=== PATIENT | male | born 1955 | race Caucasian/White ===

== ENCOUNTER 2017-07-30 08:39 | Inpatient (IN) | payer MEDICARE, BC ==
[2017-07-30] MEDS ORDERED: ASPIRIN 81 MG PO STA (08:52)
[2017-07-30] MEDS ORDERED: NITROGLYCERIN SL TABS 0.4 MG TAB SUBLINGUAL STA ×3 (08:52)
--- NOTE | 2017-07-30 08:56 | ED ---
General Adult HPI - General Chief complaint: Chest Pain Stated complaint: CHEST PAIN Time Seen by Provider: 07/30/17 08:49 Source: patient, RN notes reviewed Mode of arrival: ambulatory Limitations: no limitations - History of Present Illness Initial comments: Patient is a pleasant 62-year-old male presenting to the emergency department complaining of chest discomfort. Onset of symptoms was last night. Patient has discomfort described as "pain" no radiation. Patient has had mild sweating. No dyspnea. No nausea. No history of similar symptoms previously. Discomfort is severe at this time. Discomfort has been waxing and waning. - Related Data Home Medications Medication Instructions Recorded Confirmed Amoxic-Pot Clav 875-125Mg 1 tab PO Q12HR 07/30/17 07/30/17 [Augmentin 875-125] Fluticasone Nasal [place] [Flonase 1 spray EA NOSTRIL DAILY 07/30/17 07/30/17 Nasal [place]] Methocarbamol [Robaxin] 500 mg PO DAILY 07/30/17 07/30/17 Metoprolol Succinate [Toprol XL] 25 mg PO DAILY 07/30/17 07/30/17 oxyCODONE ER [OxyCONTIN 20MG E.R] 20 mg PO DAILY 07/30/17 07/30/17 Allergies Allergy/AdvReac Type Severity Reaction Status Date / Time No Known Allergies Allergy Verified 07/30/17 08:49 Review of Systems ROS Statement: Those systems with pertinent positive or pertinent negative responses have been documented in the HPI. ROS Other: All systems not noted in ROS Statement are negative. Constitutional: Denies: fever Eyes: Denies: eye pain ENT: Denies: ear pain Respiratory: Denies: cough, dyspnea Cardiovascular: Reports: chest pain Endocrine: Denies: fatigue Gastrointestinal: Denies: abdominal pain Genitourinary: Denies: dysuria Musculoskeletal: Denies: back pain Skin: Denies: rash Neurological: Denies: weakness Past Medical History Past Medical History: Hypertension History of Any Multi-Drug Resistant Organisms: None Reported Past Surgical History: Tonsillectomy Additional Past Surgical History / Comment(s): back sx, wisdom Past Psychological History: No Psychological Hx Reported Smoking Status: Current every day smoker Past Alcohol Use History: None Reported Past Drug Use History: None Reported General Exam Limitations: no limitations General appearance: alert, in distress (Patient does appear uncomfortable.) Head exam: Present: atraumatic Eye exam: Present: normal appearance, PERRL ENT exam: Present: normal oropharynx Neck exam: Present: normal inspection Respiratory exam: Present: normal lung sounds bilaterally. Absent: chest wall tenderness Cardiovascular Exam: Present: regular rate, normal rhythm Expanded Peripheral pulses: 2+: Radial (R), Radial (L), Posterior Tibialis (R), Posterior Tibialis (L) GI/Abdominal exam: Present: soft. Absent: distended, tenderness Extremities exam: Present: normal inspection. Absent: pedal edema, calf tenderness Neurological exam: Present: alert Psychiatric exam: Present: anxious Skin exam: Present: normal color Course Vital Signs 07/30/17 08:41 Temperature 96.8 F L Pulse Rate 75 Respiratory 22 Rate Blood Pressure 109/72 O2 Sat by Pulse 100 Oximetry - Reevaluation(s) Reevaluation #1: 07/30/17 08:53 Practitioner Nadeen jay did call back from cardiology. laborer construction or leak gang did call back and patient will go to Tele[facility] 2. 07/30/17 08:55 Dr. Beaver is presently evaluating the patient. Right-sided EKG without elevation in lead V4. Normal sinus rhythm 75. MO 190. QRS 98. QT 390. QTC 435. Normal axis. Low QRS voltage. Inferior ST elevation. 07/30/17 09:04 Patient has gone to the Telecommunications Administrator. 07/30/17 09:05 Dr. Huggins has already been paged for admission. 07/30/17 09:07 Case was discussed with Dr. Huggins who will admit for hospital call. EKG Findings - EKG Comments: EKG Findings:: Normal sinus rhythm 74. MO 190. QRS 96. QT 396. QTc 439. Normal axis. Borderline inferior Q waves. There is ST elevation inferior. There is also some ST elevation laterally. There is some ST depression in leads aVL and lead V2 and V3. No old EKG available. Medical Decision Making - Lab Data Result diagrams: 07/30/17 08:50 Lab Results 07/30/17 Range/Units 08:50 WBC 10.1 (3.8-10.6) k/uL RBC 4.97 (4.30-5.90) m/uL Hgb 14.6 (13.0-17.5) gm/dL Hct 42.4 (39.0-53.0) % MCV 85.4 (80.0-100.0) fL MCH 29.4 (25.0-35.0) pg MCHC 34.4 (31.0-37.0) g/dL RDW 13.8 (11.5-15.5) % Plt Count 257 (150-450) k/uL Neutrophils % 72 % Lymphocytes % 20 % Monocytes % 4 % Eosinophils % 2 % Basophils % 1 % Neutrophils # 7.3 (1.3-7.7) k/uL Lymphocytes # 2.1 (1.0-4.8) k/uL Monocytes # 0.4 (0-1.0) k/uL Eosinophils # 0.2 (0-0.7) k/uL Basophils # 0.1 (0-0.2) k/uL - Radiology Data Interpreted by me: Chest x-ray shows no acute abnormality. No mediastinal widening. Disposition Clinical Impression: ST elevation myocardial infarction (STEMI) Disposition: ADMITTED IP TO THIS [facility] Condition: Critical Referrals: Nonstaff,Physician [Primary Care Provider] - 1-2 days Decision Time: 09:08
[2017-07-30] MEDS ORDERED: HEPARIN SODIUM,PORCINE 5,000 UNIT/ML 1 ML VIAL IV PRN (08:58)
[2017-07-30] MEDS ORDERED: ATORVASTATIN 80 MG TAB PO STA (08:58)
[2017-07-30] MEDS ORDERED: HEPARIN SODIUM,PORCINE 5,000 UNIT/ML 1 ML VIAL IV STA (08:58)
[2017-07-30] MEDS ORDERED: HEPARIN SODIUM,PORCINE 5,000 UNIT/ML 1 ML VIAL IV ONE (08:58)
[2017-07-30 09:00] LABS: Basophils # (A) 0.1 k/uL (0-0.2); Basophils % (A) 1 %; Eosinophils # (A) 0.2 k/uL (0-0.7); Eosinophils % (A) 2 %; HCT 42.4 % (39.0-53.0); HGB 14.6 gm/dL (13.0-17.5); Lymphocytes # (A) 2.1 k/uL (1.0-4.8); Lymphocytes % (A) 20 %; MCH 29.4 pg (25.0-35.0); MCHC 34.4 g/dL (31.0-37.0); MCV 85.4 fL (80.0-100.0); Mean Platelet Volume 7.7; Monocytes # (A) 0.4 k/uL (0-1.0); Monocytes % (A) 4 %; Neutrophils # (A) 7.3 k/uL (1.3-7.7); Neutrophils % (A) 72 %; Platelet Count 257 k/uL (150-450); RBC 4.97 m/uL (4.30-5.90); RDW 13.8 % (11.5-15.5); WBC 10.1 k/uL (3.8-10.6)
[2017-07-30] MEDS ORDERED: HEPARIN SOD,PORK IN 0.45% NACL 25,000 UNIT in 0.45% NACL 1 500ML.BAG IV SCH (09:00)
[2017-07-30 09:09] LABS: ALT 32 U/L (21-72); AST 31 U/L (17-59); Albumin 3.9 g/dL (3.5-5.0); Alkaline Phosphatase 74 U/L (38-126); Anion Gap 11 mmol/L; Blood Urea Nitrogen 19 mg/dL (9-20); Carbon Dioxide 21 mmol/L (22-30); Chloride 105 mmol/L (98-107); Glucose 195 mg/dL (74-99); Potassium 4.2 mmol/L (3.5-5.1); Sodium 137 mmol/L (137-145); Total Bilirubin 0.3 mg/dL (0.2-1.3); Total Protein 6.8 g/dL (6.3-8.2)
[2017-07-30 09:12] LABS: Partial Thromboplastin Time 24.2 sec (22.0-30.0); Prothrombin Time 9.5 sec (9.0-12.0)
--- NOTE | 2017-07-30 09:18 | XR ---
EXAMINATION TYPE: XR chest 1V portable DATE OF EXAM: 07/30/2017 HISTORY: Shortness of breath. COMPARISON: 01/14/2013 TECHNIQUE: Single view of the chest is submitted. FINDINGS: Demonstrated are scattered senescent parenchymal change. There is no evidence for focal infiltrate. The heart is stable. Hilar and mediastinal structures are within normal limits. Degenerative changes are seen of the dorsal spine. IMPRESSION: 1. Chronic changes without evidence for acute pulmonary disease.
[2017-07-30] MEDS ORDERED: fentaNYL (PF) 50 MCG/ML 2 ML AMP IV ONE (09:19)
[2017-07-30] MEDS ORDERED: LIDOCAINE 2% INJ 20 MG/ML SQ ONE (09:19)
[2017-07-30] MEDS ORDERED: BIVALIRUDIN BOLUS 250 MG/50 ML IV ONE (09:26)
[2017-07-30 09:28] LABS: Magnesium 1.8 mg/dL (1.6-2.3)
[2017-07-30] MEDS ORDERED: BIVALIRUDIN 250 MG in SODIUM CHLORIDE 0.9% 50 ML IV ONE ×2 (09:28→10:02)
[2017-07-30] MEDS ORDERED: PRASUGREL 10 MG TAB PO ONE (09:32)
[2017-07-30] MEDS ORDERED: SODIUM CHLORIDE 0.9% 1,000 ML IV ONE (09:37)
--- NOTE | 2017-07-30 09:37 | CONS ---
CONSULTATION Mr. Thompson is a 62-year-old male with a history of hypertension, history of chronic tobacco use, who presented to the emergency room with symptoms of chest discomfort that started last night then got better, worse at the time of presentation. In the emergency room, his EKG was consistent with an inferior wall myocardial infarction. The patient denies any prior cardiac history and according to him, he is quite active physically without any limitation. He has no history of recent dizziness or palpitation. He has some palpitation. He had a prior history of arrhythmia over 10 years ago that has been stable. He has no PND, orthopnea, or peripheral edema. His coronary risk factors are remarkable for hypertension and smoking. He is nondiabetic. No documented hyperlipidemia. SOCIAL HISTORY: He drinks occasional alcohol and smokes. REVIEW OF SYSTEMS: RESPIRATORY SYSTEM: No recent wheezing or cough. No history of documented obstructive lung disease. GI SYSTEM: No recent GI bleeding. No peptic ulcer disease. SYSTEM: No dysuria or hematuria. NERVOUS SYSTEM: No stroke or seizure. PHYSICAL EXAMINATION: A 62-year-old male, alert, oriented, in mild discomfort. Heart rate in the 70s. Blood pressure 130/70. HEAD: Normocephalic. EYES: Sclerae anicteric. NECK: Good carotid upstroke. No bruit. No jugular venous distention. LUNGS: Clear to auscultation. HEART: Regular rate and rhythm S1, S2. No S3. No rub. ABDOMEN: Soft, obese, nontender. Positive bowel sounds. No organomegaly. EXTREMITIES: No edema. Intact distal pulses. EKG revealed sinus mechanism with ST-segment elevation in the inferior leads with ST- segment depression in the anterior precordial leads consistent with an acute inferior myocardial infarction with possible posterior extension. IMPRESSION: 1. Acute inferior myocardial infarction. 2. Chronic tobacco use. 3. Hypertension. RECOMMENDATION: I recommend proceeding with emergent coronary angiography to assess his status and guide his treatment. The rationale behind the procedure as well as the risks and complications were discussed with the patient who is in full understanding and agreement. Thank you for this consult. We will follow with you. ION / RYAN: [id number] /
[2017-07-30 09:42] LABS: Troponin I 0.535 ng/mL (0.000-0.034)
[2017-07-30] MEDS ORDERED: HYDROmorphone 2 MG/ML 1 ML SYRINGE IV ONE (09:45)
[2017-07-30 10:07] LABS: Creatine Kinase MB 9.2 ng/mL (0.0-2.4)
[2017-07-30] MEDS ORDERED: IOHEXOL 350 MG/ML 125ML BOTTLE INJ ONE (10:21)
[2017-07-30] MEDS ORDERED: NITROGLYCERIN SL TABS 0.4 MG TAB SUBLINGUAL PRN (10:31)
[2017-07-30] MEDS ORDERED: RX INFO: IV CONTRAST WAS GIVEN 1 EACH MISC MISCELLANE PRN (10:31)
[2017-07-30] MEDS ORDERED: ZOLPIDEM 5 MG TAB PO PRN (10:31)
[2017-07-30] MEDS ORDERED: MAG HYDROX/AL HYDROX/SIMETH 30 ML CUP PO PRN (10:31)
[2017-07-30] MEDS ORDERED: ATROPINE SULFATE 0.1 MG/ML 10ML SYRINGE IV PRN (10:31)
[2017-07-30] MEDS ORDERED: SODIUM CHLORIDE 0.9% 1,000 ML IV SCH (10:45)
[2017-07-30 10:56] LABS: Glucose,Whole Blood 124 mg/dL (75-99)
--- NOTE | 2017-07-30 11:07 | CONS ---
CONSULTATION Mr. Thompson is a 62-year-old male with history of chronic tobacco use, history of hypertension, who presented to the emergency room with an acute inferior myocardial infarction. In view of that, recommendation made regarding cardiac catheterization, the procedures risks and complication were discussed with the patient, who is in full understanding and agreement. PROCEDURE: Patient was brought to [facility] in a fasting semi-sedated state after receiving fentanyl and Benadryl and achieving moderate conscious sedated state. Using Xylocaine anesthesia and Seldinger technique, a 6-Lao sheath was introduced in the right radial artery. Selective right and left angiography performed using 6-Lao 3.5 Bend FR guiding catheter and a 6-Lao 3.5 FL guiding catheter. Images of the coronary arteries were obtained following angioplasty and stenting of the left circumflex was performed. Following that, the 5-Lao tight pigtail catheter was introduced into the left ventricle and pressures were calculated. Following that, catheter and sheath were removed. Hemostasis was obtained with deployment of a TR band. There was no immediate complication. Patient is returned to his room in stable condition. FINDINGS: 1. LEFT MAIN: This is a large-sized vessel bifurcating into left circumflex, left anterior descending artery. Left main coronary artery is without any obstructive coronary disease. 2. LEFT ANTERIOR DESCENDING ARTERY: This is a large-sized vessel reaching toward the apex with a wraparound apex segment giving rise to a moderate diagonal branch. Left anterior descending artery has mild intimal disease, 10% to 20% without any evidence of high-grade stenosis. 3. LEFT CIRCUMFLEX: This vessel is totally occluded proximally with no significant antegrade flow at the takeoff of the first obtuse marginal branch. 4. RIGHT CORONARY ARTERY: This is a large dominant vessel bifurcating distally into PDA and posterolateral segment and branches. The right coronary artery has mild intimal disease in mid segment without any evidence of high-grade stenosis. 5. LEFT VENTRICULOGRAM: Left ventriculogram is not performed. 6. HEMODYNAMICS: There was no gradient across the aortic valve. The left ventricular end-diastolic pressure was 14 to 16 mmHg. CONCLUSION: 1. Acutely occluded proximal left circumflex at the takeoff of the acute marginal branch. 2. Mild disease in the LAD and the right coronary artery. RECOMMENDATION: In view of finding anatomy, recommend proceeding with the angioplasty and stenting of the left circumflex. The procedures, risks and complication were discussed with the patient who was in full understanding and agreement. MMODL / IJN: [id number] /
--- NOTE | 2017-07-30 11:13 | PTCA ---
PERCUTANEOUSTRANS CORORONARY ANGIOGRAPHY Mr. Thompson is a 62-year-old male with known history of hypertension, chronic tobacco use, who presented with an acute myocardial infarction, underwent cardiac catheterization, was found to have totally occluded proximal left circumflex at the takeoff of the first obtuse marginal branch. In view of that, recommendation was made regarding angioplasty and stenting. The procedure as well as the risks and complications were discussed with the patient who is in full understanding and agreement. PROCEDURE: Using a 6-Cymraes 3.5 FL guiding catheter and after cannulating the left main, a 0.014 balanced medium weight weight J-wire was advanced across the lesion. A 2.5 x 8 mm Trek balloon was advanced and one inflation was done. There was inability to maintain the wire in the distal vessel because of the tortuosity in the vessel and backup from the guiding catheter was not optimal. At that point, guidewire, the balloon and the guiding catheter were removed and a 6-Cymraes FL4 guiding catheter was introduced in the system. After cannulating the left, the vessel was rewired and attempts to advance a 2.5 x 12 mm Trek balloon were unsuccessful in advancing the balloon. Attempt to advance a GuideLiner was unsuccessful as well. At that point, the wire was removed and a 0.014 whisper J-wire was advanced, positioned distally. Then another whisper J-wire was advanced in the position next the first one in a jonatan fashion. Following that, the 2.5 x 12 mm Trek balloon was advanced and 2 inflation maximum of 8 atmospheres were done. Following that, the balloon was removed and a 3.0 x 18 mm Xience Alpine stent was deployed, postdilated at 14 atmospheres. After the last inflation, after appropriate wait, the balloon and the guidewire were withdrawn back in the guiding catheter. Images were obtained and repeated. Those images reveal stable successful stenting. At that point, the guiding catheter, the balloon and the guidewire were removed and a 5-Cymraes tight pigtail catheter introduced into the left ventricle and pressures were calculated. Following that, catheter and sheath were removed. Hemostasis was obtained with deployment of a TR band. There was no immediate complication. Patient returned to his room in stable condition. Of note, the patient received Angiomax per protocol as well as oral loading dose of Effient. He had resolution of chest discomfort as well as improvement of his EKG changes. RESULTS: Successful stenting of the first obtuse marginal branch with reduction of stenosis from 100% to 0%. RECOMMENDATION: Patient will be continued on aspirin, Effient, beta blockers and statin. The importance of dual antiplatelet treatment were discussed with the patient who is in full understanding and agreement. Duration of procedure: 61 minutes. MMODL / IJN: [id number] /
[2017-07-30] MEDS: LISINOPRIL 5 MG TAB PO SCH (15:42)
--- NOTE | 2017-07-30 17:19 | HP ---
HISTORY AND PHYSICAL CHIEF COMPLAINT: This is a 62-year-old white male, status post PTCA of the right circumflex and obtuse artery. HISTORY OF PRESENT ILLNESS: This 62-year-old white male presented with a positive myocardial infarction to the emergency room with intermittent pain and sweating. He was found to have a positive heart attack, a STEMI, and he was sent to the general labor forklift operator where a PTCA was performed, stenting of the left circumflex as mentioned above. HOME MEDICATIONS: Home medications include: 1. Augmentin. 2. Fluticasone. 3. Robaxin. 4. Toprol-XL. 5. OxyContin. SOCIAL HISTORY: He is a smoker. No alcohol. No drugs. PAST MEDICAL HISTORY: Hypertension. REVIEW OF SYSTEMS: Fourteen-point review of systems negative except as mentioned in HPI. ALLERGIES: NO KNOWN DRUG ALLERGIES. PHYSICAL EXAM: Vital signs stable. Afebrile. Temperature 96.8, pulse 77, respirations 18 to 22 109/72. CARDIOVASCULAR: S1, S2. OPHTHALMOLOGIC: Pupils equal, round and reactive to light and accommodation. NEUROLOGIC: Alert and oriented x3. PSYCH: Fair mood and affect. : No suprapubic tenderness. HEMATOLOGIC: Negative Homans. GI: Soft. ASSESSMENT: 1. Sepsis, status post PTCA. 2. Nicotine addiction. 3. Dyslipidemia. 4. Status post ST-elevation myocardial infarction. 5. Hyperglycemia. Will do a hemoglobin A1c. Will do a lipid panel. Follow up in next 24 to 48 hours for possible cardiac monitoring here in the ICU, at which time possibly he will be sent to telemetry, maybe go home in 2 days. MMODL / IJN: [id number] /
[2017-07-30] MEDS: METHOCARBAMOL 500 MG TAB PO SCH (17:28)
[2017-07-30] MEDS: oxyCODONE ER 20 MG TAB.ER.12H PO SCH (17:29)
[2017-07-30] MEDS ORDERED: ACETAMINOPHEN TAB 325 MG TAB PO PRN (17:30)
[2017-07-30 18:36] LABS: Amphetamine Screen,Urine Not Detected (NotDetected); Barbiturate Screen,Urine Not Detected (NotDetected); Benzodiazepines Screen,Urine Detected (NotDetected); Cocaine Screen,Urine Not Detected (NotDetected); Methadone Screen, Urine Not Detected (NotDetected); Opiate Screen,Urine Not Detected (NotDetected); Phencyclidine Screen,Urine Not Detected (NotDetected); Tricyclic Antidepressant,Urine Not Detected (NotDetected); Urn Cannabinoid Scrn Detected (NotDetected)
[2017-07-30 18:37] LABS: Oxycodone Screen, Urine Detected (NotDetected)
[2017-07-30] MEDS: METOPROLOL TARTRATE 25 MG TAB PO SCH (20:47)
[2017-07-30] MEDS: AMOXIC-POT CLAV 875-125MG 1 EACH TAB PO SCH (20:47)
[2017-07-30 21:04] LABS: Hemoglobin A1C 5.3 % (4.0-6.0)
[2017-07-31 05:41] LABS: Anion Gap 8 mmol/L; Blood Urea Nitrogen 16 mg/dL (9-20); Calcium 9.7 mg/dL (8.4-10.2); Carbon Dioxide 26 mmol/L (22-30); Chloride 106 mmol/L (98-107); Cholesterol 150 mg/dL (<200); Glucose 118 mg/dL (74-99); HDL Cholesterol 31 mg/dL (40-60); LDL Cholesterol,Calculated 90 mg/dL (0-99); Potassium 4.5 mmol/L (3.5-5.1); Sodium 140 mmol/L (137-145); Triglycerides 143 mg/dL (<150)
[2017-07-31] MEDS: ASPIRIN 81 MG PO SCH (08:12)
[2017-07-31] MEDS: METOPROLOL TARTRATE 25 MG TAB PO SCH ×2 (08:12→21:04)
[2017-07-31] MEDS: LISINOPRIL 5 MG TAB PO SCH (08:12)
[2017-07-31] MEDS: AMOXIC-POT CLAV 875-125MG 1 EACH TAB PO SCH ×2 (08:12→21:04)
[2017-07-31] MEDS: oxyCODONE ER 20 MG TAB.ER.12H PO SCH (08:12)
[2017-07-31] MEDS: PRASUGREL 10 MG TAB PO SCH (08:12)
[2017-07-31] MEDS: METHOCARBAMOL 500 MG TAB PO SCH (08:18)
[2017-07-31] MEDS: SPIRONOLACTONE 25 MG TAB PO SCH (08:26)
--- NOTE | 2017-07-31 08:38 | PN ---
PROGRESS NOTE Mr. Thompson is a 62-year-old male who presents with an acute myocardial infarction was found to have a totally occluded proximal circumflex and obtuse marginal branch 1, underwent stenting of that vessel. He is doing well this morning. He has no symptoms of chest pain. His breathing has been stable. He denies any dizziness or palpitation. Denies any nausea. On the monitor, continued to be in sinus mechanism. He continued on aspirin once a day, Lipitor 80 mg daily, lisinopril 5 mg daily, metoprolol tartrate 25 mg twice a day. PHYSICAL EXAMINATION: Blood pressure 127/70 with a heart rate in the 80s. LUNGS: Clear. HEART: Regular rate and rhythm S1, S2. No S3. No rub. ABDOMEN: Soft, nontender. EXTREMITIES: No edema. Right radial pulse is intact. LAB DATA: Lab data revealed troponin up to 170. BUN, creatinine of 18, 116, cholesterol of 150 with an LDL of 90. EKGs consistent with inferoposterior myocardial infarction. IMPRESSION: 1. Status post acute ST-segment elevation myocardial infarction with stenting of the left circumflex. 2. Hypertension. 3. History of tobacco use. RECOMMENDATION: From the cardiac standpoint, I will add Aldactone to his regimen. I will review the results of his echocardiogram. He should be able to be transferred to telemetry floor today and increase his level of activity and depending on his progress, further recommendations will be made. ION / RYAN: [id number] /
[2017-07-31 10:21] VITALS: BMI 34.6
[2017-07-31] MEDS: ATORVASTATIN 80 MG TAB PO SCH (21:04)
--- NOTE | 2017-07-31 21:17 | PN ---
PROGRESS NOTE SUBJECTIVE: This is a 62-year-old white male, status post PTCA, having no chest pain or shortness of breath. No lightheadedness, dizziness, syncope. CARDIOVASCULAR: S1, S2. LUNGS: Clear. GI: Soft. HEMATOLOGIC: Negative Homans. VITAL SIGNS: Stable. Afebrile. He has a totally occluded proximal circumflex obtuse marginal branch, underwent stenting of the vessel. Remains on lisinopril 5 mg a day, Lipitor 80 mg a day, aspirin once a day, metoprolol 25 b.i.d. ASSESSMENT: 1. Status post acute ST-elevated myocardial infarction, left circumflex. 2. Hypertension. echocardiogram been added to his regimen. Possible discharge home in the next 24 to 48 hours. MMFARAZL / IJN: [id number] /
[2017-08-01 06:19] LABS: Anion Gap 7 mmol/L; Blood Urea Nitrogen 27 mg/dL (9-20); Calcium 9.4 mg/dL (8.4-10.2); Carbon Dioxide 25 mmol/L (22-30); Chloride 106 mmol/L (98-107); Glucose 112 mg/dL (74-99); Potassium 4.7 mmol/L (3.5-5.1); Sodium 138 mmol/L (137-145)
[2017-08-01] MEDS: ASPIRIN 81 MG PO SCH (09:47)
[2017-08-01] MEDS: METHOCARBAMOL 500 MG TAB PO SCH (09:47)
[2017-08-01] MEDS: oxyCODONE ER 20 MG TAB.ER.12H PO SCH (09:47)
[2017-08-01] MEDS: PRASUGREL 10 MG TAB PO SCH (09:47)
[2017-08-01] MEDS: LISINOPRIL 5 MG TAB PO SCH (09:47)
[2017-08-01] MEDS: SPIRONOLACTONE 25 MG TAB PO SCH (09:47)
[2017-08-01] MEDS: AMOXIC-POT CLAV 875-125MG 1 EACH TAB PO SCH ×2 (09:47→20:15)
[2017-08-01] MEDS: METOPROLOL TARTRATE 25 MG TAB PO SCH ×2 (09:47→20:15)
--- NOTE | 2017-08-01 12:09 | PN ---
PROGRESS NOTE SUBJECTIVE: A 62-year-old white male who is status post PTCA of the right circumflex. Home medications were reviewed with him as well as his renal function and low HDL. We are awaiting for echo report to be read and possibly after the echo is read, possible discharge in next 24 hours. CARDIOVASCULAR: S1, S2. LUNGS: Transmitted upper airway sounds. HEMATOLOGY: Negative Homans. PSYCH: Fair mood and affect. GI: Soft, nontender. ASSESSMENT: 1. Nicotine addiction. 2. ST-elevation myocardial infarction. 3. Coronary artery disease. 4. Obesity. 5. Hypertension. 6. Dyslipidemia. PLAN: Home medications, smoking cessation, diet discussed with the patient. Possible discharge next 24 hours. MMODL / IJN: [id number] /
--- NOTE | 2017-08-01 12:48 | PN ---
PROGRESS NOTE Mr. Thompson is a 62-year-old male who presented with an acute myocardial infarction, underwent stenting of the left circumflex, is doing well this morning. Ambulating without difficulty. Denying any chest pain. No dizziness. No palpitation. No nausea, no vomiting. He continued be on Aldactone 25 mg daily, aspirin once a day, Lipitor 80 mg daily, Zestril 5 mg daily, metoprolol tartrate 25 mg twice a day, Effient 10 mg daily. PHYSICAL EXAMINATION: Blood pressure 129/60 with the heart rate in the 80s. LUNGS: Clear. HEART: Regular rate and rhythm, S1, S2. No S3. No rub. ABDOMEN: Soft, nontender. EXTREMITIES: No edema. LAB DATA: Lab data revealed BUN and creatinine 27 and 1.4. His echocardiogram revealed an ejection fraction of 40% to 45% with trace mitral and tricuspid regurgitation. IMPRESSION: 1. Status post myocardial infarction with stenting of left circumflex. 2. Prior history of smoking. 3. Worsening renal function. RECOMMENDATION: I will stop his Aldactone. Continue the rest of medical regimen. Follow his renal function. If he remains stable, will expect he should be able to be discharged home tomorrow. MMODL / IJN: [id number] /
[2017-08-01 17:20] VITALS: RESP 16
[2017-08-01] MEDS: ATORVASTATIN 80 MG TAB PO SCH (20:15)
[2017-08-02 06:42] LABS: Calcium 9.2 mg/dL (8.4-10.2); Potassium 4.8 mmol/L (3.5-5.1)
[2017-08-02] MEDS: METHOCARBAMOL 500 MG TAB PO SCH (08:00)
[2017-08-02] MEDS: AMOXIC-POT CLAV 875-125MG 1 EACH TAB PO SCH (08:02)
[2017-08-02] MEDS: LISINOPRIL 5 MG TAB PO SCH (08:02)
[2017-08-02] MEDS: METOPROLOL TARTRATE 25 MG TAB PO SCH (08:02)
[2017-08-02] MEDS: oxyCODONE ER 20 MG TAB.ER.12H PO SCH (08:02)
[2017-08-02] MEDS: PRASUGREL 10 MG TAB PO SCH (08:03)
[2017-08-02] MEDS: ASPIRIN 81 MG PO SCH (08:05)
[2017-08-02 11:13] VITALS: BP 109/57; PULSE 74; TEMP 98
--- NOTE | 2017-08-02 14:43 | PN ---
PROGRESS NOTE Mr. Thompson is a 62-year-old male who presented with an acute myocardial infarction, underwent stenting of the left circumflex. He is doing well this morning. He denies any symptoms of chest pain. His breathing has been stable. He denies any dizziness or palpitation. He has been ambulating without difficulties. He continues to be at this time on aspirin once a day, Effient 10 mg daily, Lipitor 80 mg daily, Lopressor 25 mg twice a day and Zestril 5 mg daily. PHYSICAL EXAMINATION: Blood pressure 109/50 with a heart rate in the 70s. LUNGS: Clear. Heart regular rate and rhythm S1, S2. No S3. No rub. ABDOMEN: Soft, nontender. EXTREMITIES: No edema. LAB DATA: BUN and creatinine 29 and 1.5, potassium 4.8. IMPRESSION: 1. Status post myocardial infarction, stenting of the left circumflex. 2. Renal failure could be related to hypertension and the dye. 3. Prior history of smoking. 4. Hyperlipidemia. RECOMMENDATION: I will stop his Zestril. Otherwise, he should be able to be discharged home today and follow up as an outpatient in 1 week. MMODL / IJN: [id number] /
--- NOTE | 2017-08-03 08:46 | ECHOF ---
Referral Reason:mi MEASUREMENTS -------- HEIGHT: 177.8 cm WEIGHT: 111.1 kg BP: 151/112 RVIDd: 3.3 cm (< 3.3) IVSd: 1.3 cm (0.6 - 1.1) LVIDd: 4.6 cm (3.9 - 5.3) LVPWd: 1.3 cm (0.6 - 1.1) IVSs: 1.8 cm LVIDs: 3.1 cm LVPWs: 1.8 cm LA Diam: 3.3 cm (2.7 - 3.8) LAESV Index (A-L): 23.86 ml/m Ao Diam: 4.6 cm (2.0 - 3.7) AV Cusp: 2.2 cm (1.5 - 2.6) MV EXCURSION: 22.777 mm (> 18.000) MV EF SLOPE: 75 mm/s (70 - 150) EPSS: 0.4 cm MV E Raymond: 0.80 m/s MV DecT: 183 ms MV A Raymond: 0.75 m/s MV E/A Ratio: 1.05 AV maxP.21 mmHg AV meanP.43 mmHg FINDINGS -------- Sinus rhythm. This was a technically good study. The left ventricular size is normal. There is mild concentric left ventricular hypertrophy. Overa ll left ventricular systolic function is mild-moderately impaired with, an EF between 40 - 45 %. Ba samm inferior LV wall motion is hypokinetic. Mid inferior LV wall motion is hypokinetic. Inferio rlateral Hypokinesis The right ventricle is mildly enlarged. Normal LA size by volume 22+/-6 ml/m2. The right atrium is normal in size. There is mild aortic valve sclerosis. There is trace mitral regurgitation. Trace tricuspid regurgitation present. The pulmonic valve was not well visualized. The aortic root is dilated measuring 4.6cm. Normal inferior vena cava with normal inspiratory collapse consistent with estimated right atrial pre ssure of 5 mmHg. There is no pericardial effusion. CONCLUSIONS -------- 1. Sinus rhythm. 2. This was a technically good study. 3. The left ventricular size is normal. 4. There is mild concentric left ventricular hypertrophy. 5. Overall left ventricular systolic function is mild-moderately impaired with, an EF between 40 - 45 %. 6. Basal inferior LV wall motion is hypokinetic. 7. Mid inferior LV wall motion is hypokinetic. 8. Inferiorlateral Hypokinesis 9. The right ventricle is mildly enlarged. 10. Normal LA size by volume 22+/-6 ml/m2. 11. The right atrium is normal in size. 12. There is mild aortic valve sclerosis. 13. There is trace mitral regurgitation. 14. Trace tricuspid regurgitation present. 15. The pulmonic valve was not well visualized. 16. The aortic root is dilated measuring 4.6cm. 17. Normal inferior vena cava with normal inspiratory collapse consistent with estimated right atrial pressure of 5 mmHg. 18. There is no pericardial effusion. LOCKS INSPECTOR: Martine Kaye RDCS
--- NOTE | 2017-08-17 08:32 | CDI ---
Last Revision, June 2017 Date: 08/17/2017 8:16:00 AM From: CHYNA Kitchen; Marli Miller, Director Process Improvement Admit Date: 07/30/2017 8:58:00 AM Patient Name: Aramis Thompson Visit Number: [id number] Discharge Date: 08/02/2017 ATTENTION: The Clinical Documentation Specialists (CDI) and [facility] Coding Staff appreciate your assistance in clarifying documentation. Please respond to the clarification below the line at the bottom and electronically sign. The CDI & [facility] Coding staff will review the response and follow-up if needed. Please note: Queries are made part of the Legal Health Record. If you have any questions, please contact the author of this message via ITS. Dr. Bree Beaver Renal failure possibly due to hypertension and dye was documented in the final progress note dated 08/02/17. History/Risk Factors: Patient presented with ID and cardiac cath w/PTCA performed 07/30/2017. Post procedure BUN/Cr/GFR : BUN 29; Cr 1.50 In order to capture the severity of condition, please clarify if the condition signifies: Acute renal failure, Please specify etiology (if known): Cortical Necrosis Medullary Necrosis Tubular Necrosis Acute kidney injury Chronic renal failure/Chronic Kidney disease (CKD) please stage if known CKD Stage 1 GFR >90 CKD Stage 2 GFR 60-89 CKD Stage 3 GFR 30-59 CKD Stage 4 GFR 15-29 CKD Stage 5 GFR <15 ESRD Other, please specify Unable to determine f you have a question about this query, please contact Marli Miller Director Process Improvement at [phone] between 8am and 5pm. MTDD
--- NOTE | 2017-08-18 13:27 | CDI ---
Date: 08/17/2017 8:16:00 AM From: CHYNA Kitchen; Marli Miller, Customer Advisor Admit Date: 07/30/2017 8:58:00 AM Patient Name: Aramis Thompson Visit Number: [id number] Discharge Date: 08/02/2017 ATTENTION: The Clinical Documentation Specialists (CDI) and [facility] Coding Staff appreciate your assistance in clarifying documentation. Please respond to the clarification below the line at the bottom and electronically sign. The CDI & [facility] Coding staff will review the response and follow-up if needed. Please note: Queries are made part of the Legal Health Record. If you have any questions, please contact the author of this message via ITS. Dr. Gato Huggins, Renal failure possibly due to hypertension and dye was documented in the final progress note dated 08/02/17. History/Risk Factors: Patient presented with AK and cardiac cath w/PTCA performed 07/30/2017. Post procedure BUN/Cr/GFR : BUN 29; Cr 1.50 In order to capture the severity of condition, please clarify if the condition signifies: Acute renal failure, Please specify etiology (if known): Cortical Necrosis Medullary Necrosis Tubular Necrosis Acute kidney injury Chronic renal failure/Chronic Kidney disease (CKD) please stage if known CKD Stage 1 GFR >90 CKD Stage 2 GFR 60-89 CKD Stage 3 GFR 30-59 CKD Stage 4 GFR 15-29 CKD Stage 5 GFR <15 ESRD Other, please specify Unable to determine f you have a question about this query, please contact Marli Miller Customer Advisor at [phone] between 8am and 5pm. MTDD
--- NOTE | 2017-08-26 10:51 | CDI ---
Last Revision, June 2017 Date: 08/17/2017 8:16:00 AM From: CHYNA Kitchen; Marli Miller, Glass Sagger Admit Date: 07/30/2017 8:58:00 AM Patient Name: Aramis Thompson Visit Number: [id number] Discharge Date:08/02/2017 ATTENTION: The Clinical Documentation Specialists (CDI) and [facility] Coding Staff appreciate your assistance in clarifying documentation. Please respond to the clarification below the line at the bottom and electronically sign. The CDI & [facility] Coding staff will review the response and follow-up if needed. Please note: Queries are made part of the Legal Health Record. If you have any questions, please contact the author of this message via ITS. Dr. Gato Huggins Renal failure possibly due to hypertension and dye was documented in the final progress note dated 08/02/17. History/Risk Factors: Patient presented with [place] and cardiac cath w/PTCA performed 07/30/2017. Post procedure BUN/Cr/GFR : BUN 29; Cr 1.50 In order to capture the severity of condition, please clarify if the condition signifies: Acute renal failure, Please specify etiology (if known): Cortical Necrosis Medullary Necrosis Tubular Necrosis Acute kidney injury Chronic renal failure/Chronic Kidney disease (CKD) please stage if known CKD Stage 1 GFR >90 CKD Stage 2 GFR 60-89 CKD Stage 3 GFR 30-59 CKD Stage 4 GFR 15-29 CKD Stage 5 GFR <15 ESRD Other, please specify Unable to determine If you have a question about this query, please contact Marli Miller Glass Sagger at [phone] between 8am and 5pm. AMAN
--- NOTE | 2017-09-07 00:43 | DS ---
DISCHARGE SUMMARY DATE OF ADMISSION: 07/30/2017. DATE OF DISCHARGE: 08/02/2017. HOME MEDICATIONS: 1. OxyContin 20 mg ER q.12. 2. Toprol-XL 25 mg daily. 3. Robaxin 500 mg daily. 4. Augmentin 875 1 b.i.d. 5. Fluticasone nasal spray daily. 6. Aspirin 81 mg daily. 7. Lipitor 80 mg daily. 8. Lopressor 25 mg b.i.d. 9. Nitro sublingual p.r.n. 10.Effient 10 mg daily. CONDITION: Stable. PROGNOSIS: Guarded. ambulate as tolerated. FINAL DIAGNOSES: 1. Acute myocardial infarction. He had a stent placed to the left circumflex. He did well postoperatively, started on Effient, Lipitor, Lopressor and Zestril. Cardiology cleared him for discharge. 2. He had renal failure secondary to hypertension and the dye. 3. Nicotine addiction. 4. Dyslipidemia. We will follow up in a week after being discharged from the hospital. MMODL / IJN: [id number] /
== END 2017-08-02 16:07 | disposition home or self-care (01) | DRG 247 ==
LOC: EC 08:39 → 6ICU 08:58 → 6SEL 07-31 09:38
PROVIDERS: ADMIT Family Medicine; ATTEND Family Medicine
DX: I21.19 ST elevation (STEMI) myocardial infarction involving other coronary artery of inferior wall (principal); N19 Unspecified kidney failure; E66.9 Obesity, unspecified; E78.5 Hyperlipidemia, unspecified; F17.200 Nicotine dependence, unspecified, uncomplicated; I10 Essential (primary) hypertension; I25.10 Atherosclerotic heart disease of native coronary artery without angina pectoris; Z79.899 Other long term (current) drug therapy; Z79.891 Long term (current) use of opiate analgesic
CPT/HCPCS: 36415; 71045; 80048; 80053; 80061; 80306; 82550; 82553; 83036; 83735; 84484; 85025; 85610; 85730; 93005; 93306; 93458; 96374; 99285

== ENCOUNTER → 2017-08-12 | Outpatient (CLI) | payer MEDICARE, BC ==
[2017-08-12 15:23] LABS: Anion Gap 9 mmol/L; Blood Urea Nitrogen 23 mg/dL (9-20); Carbon Dioxide 28 mmol/L (22-30); Chloride 105 mmol/L (98-107); Potassium 4.9 mmol/L (3.5-5.1); Sodium 142 mmol/L (137-145)
== END | disposition home or self-care (01) ==
LOC: LABWHC1 14:54
PROVIDERS: ATTEND Internal Medicine Interventional Cardiology
DX: I10 Essential (primary) hypertension (principal)
CPT/HCPCS: 36415; 80051; 82565; 84520

== ENCOUNTER → 2017-10-20 | Outpatient (CLI) | payer MEDICARE, BC ==
[2017-10-20 09:29] LABS: Albumin 3.7 g/dL (3.5-5.0); Calcium 8.6 mg/dL (8.4-10.2); Potassium 4.7 mmol/L (3.5-5.1); Total Bilirubin 0.5 mg/dL (0.2-1.3); Total Protein 6.3 g/dL (6.3-8.2)
== END | disposition home or self-care (01) ==
LOC: LABWHC1 08:15
PROVIDERS: ATTEND Internal Medicine Interventional Cardiology
DX: E78.2 Mixed hyperlipidemia (principal)
CPT/HCPCS: 36415; 80053; 80061

== ENCOUNTER 2018-01-23 15:13 | Emergency (ER) | payer MEDICARE, BC ==
[2018-01-23 15:37] VITALS: BP 142/74; PULSE 63; RESP 16; TEMP 97.9
[2018-01-23] MEDS ORDERED: TOPICAL SKIN ADHESIVE 1 EACH AMP TOPICAL ONE (15:49)
--- NOTE | 2018-01-23 16:03 | ED ---
General Adult HPI - General Chief complaint: Wound/Laceration Stated complaint: Finger laceration Time Seen by Provider: 01/23/18 15:47 Source: patient, RN notes reviewed Mode of arrival: ambulatory Limitations: no limitations - History of Present Illness Initial comments: Patient 62-year-old male presented to the emergency room today with a chief complaint of laceration to the fifth digit of the left hand. Patient does admit that he was using a pocket knife when he externally cut himself. He states tetanus is up-to-date. Denies any other complaints or symptoms. Patient denies any recent fever, chills, shortness of breath, chest pain, back pain, abdominal pain, nausea or vomiting, numbness or tingling, headaches or visual changes, or any other complaints. - Related Data Home Medications Medication Instructions Recorded Confirmed Amoxic-Pot Clav 875-125Mg 1 tab PO Q12HR 07/30/17 07/30/17 [Augmentin 875-125] Fluticasone Nasal Stout [Flonase 1 spray EA NOSTRIL DAILY 07/30/17 07/30/17 Nasal Stout] Methocarbamol [Robaxin] 500 mg PO DAILY 07/30/17 07/30/17 Metoprolol Succinate [Toprol XL] 25 mg PO DAILY 07/30/17 07/30/17 oxyCODONE ER [OxyCONTIN 20MG E.R] 20 mg PO DAILY 07/30/17 07/30/17 Previous Rx's Medication Instructions Recorded Aspirin 81 mg PO DAILY chew 08/02/17 Atorvastatin [Lipitor] 80 mg PO HS #90 tab 08/02/17 Metoprolol Tartrate [Lopressor] 25 mg PO BID #180 tab 08/02/17 Nitroglycerin Sl Tabs [Nitrostat] 0.4 mg SUBLINGUAL Q5M PRN #25 tab 08/02/17 Prasugrel [Effient] 10 mg PO DAILY #90 tab 08/02/17 Allergies Allergy/AdvReac Type Severity Reaction Status Date / Time No Known Allergies Allergy Verified 01/23/18 15:36 Review of Systems ROS Statement: Those systems with pertinent positive or pertinent negative responses have been documented in the HPI. ROS Other: All systems not noted in ROS Statement are negative. Past Medical History Past Medical History: Coronary Artery Disease (CAD), Hypertension History of Any Multi-Drug Resistant Organisms: None Reported Past Surgical History: Heart Catheterization With Stent Additional Past Surgical History / Comment(s): back sx x2 Past Anesthesia/Blood Transfusion Reactions: No Reported Reaction Past Psychological History: No Psychological Hx Reported Smoking Status: Current every day smoker Past Alcohol Use History: Occasional Past Drug Use History: None Reported - Past Family History Mother Family Medical History: Congestive Heart Failure (CHF) Father Family Medical History: Chest Pain / Angina, Coronary Artery Disease (CAD), Myocardial Infarction (IA) Additional Family Medical History / Comment(s): on cardiac transplant list at one point. General Exam - General Exam Comments Initial Comments: General: The patient is awake and alert, in no distress, and does not appear acutely ill. Neck: The neck is supple, there is no tenderness or JVD. Musculoskeletal: Full range motion. Sensation intact. Pulses equal bilaterally 2+. Strength 5/5. Neurological: A&O x 3. CN II-XII intact, There are no obvious motor or sensory deficits. Coordination appears grossly intact. Speech is normal. Skin: 1 cm linear horizontal laceration to the volar aspect of the distal fifth digit of the left hand. Psychiatric: Normal mood and affect. Limitations: no limitations Course Vital Signs 01/23/18 15:32 Temperature 97.9 F Pulse Rate 63 Respiratory 16 Rate Blood Pressure 142/74 O2 Sat by Pulse 96 Oximetry Procedures - Procedures Initial comment: Patient's laceration site was cleaned with saline. Wound edges were closer approximate with Dermabond. Patient tolerated procedure well. Disposition Clinical Impression: Laceration Disposition: HOME SELF-CARE Condition: Good Instructions: Laceration (ED) Additional Instructions: Please allow glue to follow up on its own over the next 2-5 days. Please watch for any signs of infection which may include increased pain, swelling, redness, fever or chills. Please return to emergency room for any other concerns. Is patient prescribed a controlled substance at d/c from ED?: No Referrals: Gato Huggins MD [Primary Care Provider] - 1-2 days Time of Disposition: 16:03
== END 2018-01-23 16:15 | disposition home or self-care (01) ==
LOC: EC 15:13
DX: S61.217A Laceration without foreign body of left little finger without damage to nail, initial encounter (principal); I25.10 Atherosclerotic heart disease of native coronary artery without angina pectoris; I10 Essential (primary) hypertension; F17.200 Nicotine dependence, unspecified, uncomplicated; Z79.51 Long term (current) use of inhaled steroids; Z79.899 Other long term (current) drug therapy; Z95.5 Presence of coronary angioplasty implant and graft; W26.0XXA Contact with knife, initial encounter
CPT/HCPCS: 12001; 99282

== ENCOUNTER → 2018-04-15 | Outpatient (CLI) | payer MEDICARE, BC ==
[2018-04-15 10:07] LABS: ALT 45 U/L (21-72); AST 32 U/L (17-59); Cholesterol 114 mg/dL (<200); Creatine Kinase 237 U/L (55-170); HDL Cholesterol 30 mg/dL (40-60); LDL Cholesterol,Calculated 58 mg/dL (0-99); Triglycerides 129 mg/dL (<150)
== END | disposition home or self-care (01) ==
LOC: LABWHC1 08:57
PROVIDERS: ATTEND Internal Medicine Interventional Cardiology
DX: E78.2 Mixed hyperlipidemia (principal)
CPT/HCPCS: 36415; 80061; 82550; 84450; 84460

== ENCOUNTER → 2018-10-25 | Outpatient (CLI) | payer MEDICARE, BC ==
[2018-10-25 20:21] LABS: Albumin 4.1 g/dL (3.80-4.90); Albumin/Globulin Ratio 2.05 (1.60-3.17); Anion Gap 8.1 mmol/L (4.00-12.00); Calcium 8.9 mg/dL (8.7-10.3); Carbon Dioxide 22.9 mmol/L (21.6-31.8); LDL Cholesterol,Calculated 46.4 mg/dL (0.0-131.0); Potassium 4.7 mmol/L (3.5-5.5); Total Bilirubin 0.8 mg/dL (0.2-1.2); Total Protein 6.1 g/dL (6.2-8.2); VLDL Calculation 27.6 mg/dL (5.00-40.00)
== END ==
LOC: LABWHC1 12:24
PROVIDERS: ATTEND Internal Medicine Interventional Cardiology
DX: E78.2 Mixed hyperlipidemia (principal)
CPT/HCPCS: 36415; 80053; 80061

== ENCOUNTER → 2019-04-25 | Outpatient (CLI) | payer MEDICARE, BC ==
[2019-04-25 18:46] LABS: Chol/HDL Ratio 4.47; LDL Cholesterol,Calculated 55.2 mg/dL (0.0-131.0); VLDL Calculation 55.8 mg/dL (5.00-40.00)
== END | disposition home or self-care (01) ==
LOC: LABWHC1 08:14
PROVIDERS: ATTEND Nurse Practitioner Adult Health
DX: E78.2 Mixed hyperlipidemia (principal)
CPT/HCPCS: 36415; 80061; 84450; 84460